=== PATIENT | female | born 1985 | race Caucasian/White ===

== ENCOUNTER → 2023-11-15 16:48 | Outpatient (REF) | payer BC, SELFPAY | LOC: WDC 16:48 | PROVIDERS: ATTENDING PHYSICIAN Physician Assistant Medical | DX: R92.8 Other abnormal and inconclusive findings on diagnostic imaging of breast (principal); Z12.31 Encounter for screening mammogram for malignant neoplasm of breast; Z12.39 Encounter for other screening for malignant neoplasm of breast | CPT/HCPCS: 77063; 77067 ==